=== PATIENT | male | born 1925 | race Caucasian/White ===

== ENCOUNTER 2016-09-23 17:16 | Inpatient (IN) | payer MEDICARE, MEDICAID ==
[2016-09-23] MEDS ORDERED: Sodium Chloride 0.9% 1,000 ML IV STA (18:25)
--- NOTE | 2016-09-23 18:35 | C.PDOC ---
"History Of Present Illness 89 y/o M [place] resident c PMHx BPH, glaucoma, blindness sent from [place] for increasing weakness, shortness of breath, loss of appetite, paleness that was noticed since 6 hours ago. Further ROS unobtainable due to patient's condition. Time Seen by Provider: 09/23/16 18:06 Chief Complaint (Nursing): Altered Mental Status Past Medical History Vital Signs: Last Vital Signs Temp 98.8 F 09/23/16 21:19 Pulse 86 09/23/16 21:19 Resp 18 09/23/16 21:19 BP 145/90 09/23/16 21:19 Pulse Ox 97 09/23/16 21:19 - Medical History PMH: Benign Prostatic Hyperplasia Family History: States: No Known Family Hx - Social History Hx Alcohol Use: No Hx Substance Use: No - Immunization History Hx Tetanus Toxoid Vaccination: No Hx Influenza Vaccination: No Hx Pneumococcal Vaccination: No Review Of Systems Review Of Systems: ROS cannot be obtained secondary to pt's inabilty to answer questions. Physical Exam - Physical Exam Additional Physical Exam Comments: Constitutional: No acute distress. Head: Normocephalic. Atraumatic. ENT: Dry mucous membranes. Neck: Supple. Cardiovascular: Regular rate. Radial pulses 2+ bilaterally. Chest: No tenderness. Respiratory: Clear to auscultation bilaterally. GI: Diffusely tender. Back: No CVA tenderness. Musculoskeletal: No tenderness or swelling of extremities. Skin: No rash. Neurologic: Awake, alert, no focal deficit. ED Course And Treatment - Laboratory Results Result Diagrams: 09/23/16 19:11 09/23/16 19:11 O2 Sat by Pulse Oximetry: 97 Medical Decision Making Medical Decision Making: Will assess patient for anemia, infection, UTI, PNA, electrolyte imbalance, renal function, dehydration, etc. Will also send for abdominal CT due to abdominal tenderness. [facility] Radiology [facility] Preliminary Radiology Report Call: [phone] assistance Online chat: [email or web address] Name: TELLO MONTEIRO Age: 89Years M Date: 09/23/2016 Requesting Physician: Benji Pérez : 1925 [facility] Procedure Ordered As Accession Number of Images CT ABDOMEN/PELVIS WO CT ABD PELVIS W O PO OR IV CONT [id number] J 485 Provided Clinical History: abdominal tenderness Page 1 of 3 EXAM: CT Abdomen and Pelvis Without Intravenous Contrast CLINICAL HISTORY: 89 years old, male; Pain; Abdominal pain; Generalized; Additional info: Abdominal tenderness TECHNIQUE: Axial computed tomography images of the abdomen and pelvis without intravenous contrast. This CT exam was performed using one or more of the following dose reduction techniques: automated exposure control, adjustment of the mA and/or kV according to patient size, and/ or use of iterative reconstruction technique. Coronal and sagittal reformatted images were created and reviewed. EXAM DATE/TIME: Exam ordered 09/23/2016 6:25 PM COMPARISON: No relevant prior studies available. FINDINGS: Lower thorax: There are multiple pulmonary nodules noted at both lung bases. The largest is in the right middle lobe measuring 1.6 cm in maximal diameter nodules are noted in the right upper lobe and the right lower lobe, lingula and the left lower lobe. There is a small amount of pericardial fluid/thickening. ABDOMEN: Liver: Liver is heterogeneous in density with the suggestion of multiple liver masses. Gallbladder and bile ducts: Unremarkable. No calcified stones. No ductal dilation. Pancreas: There is a heterogeneous appearing mass arising from the body the pancreas. The mass measures 4.2 x 6.6 x 4.7 cm. There is stranding of the peripancreatic fat.Small calcifications are THANIA TELLO | Preliminary Radiology Report Page 2 of 3 noted within the mass. I am uncertain if these are related to the splenic artery or represent calcifications intrinsic to the lesion. No ductal dilation. Spleen: Unremarkable Adrenals: Unremarkable. No mass. Kidneys and ureters: There is bilateral renal cortical atrophy left greater than right. There numerous cysts noted in the left kidney. The largest is in the midportion of the kidney measuring 2.3 cm with a density measurement of 9H. This is consistent with a simple cyst. Some of the lesions are too small to characterize fully. On the right, cortical hyperdense subcentimeter lesions are present. These could represent hemorrhagic cysts but they're not fully characterized due to their small size No obstructing stones. Stomach and bowel: Unremarkable. No obstruction. No mucosal thickening. Appendix: No findings to suggest acute appendicitis. PELVIS: Bladder: Unremarkable. No stones. Reproductive: Prostatic calcifications are present. The prostate measures 3.3 x 4.8 x 3.8 cm. ABDOMEN and PELVIS: Intraperitoneal space: A small amount of ascites is seen in the pelvis. No free air. Bones/joints: Degenerative changes are noted of the lumbar and thoracic spine. There is a grade 1 spondylolisthesis at L4-5 with 4 mm of retrolisthesis of L5 with respect to L4.A threaded screw traverses the right femoral neck. Its affixed to the proximal femur by a metallic plate and 4 threaded screws. Soft tissues: There is a soft tissue mass noted within the subcutaneous fat posterior to the superior left ilium. The mass measures 1.4 x 2.7 x 0.9 cm Vasculature: The fat plane around the superior mesenteric artery appears preserved. Lymph nodes: Unremarkable. No enlarged lymph nodes. IMPRESSION: 1. Multiple pulmonary nodules and hepatic masses in a patient with a dominant pancreatic mass. Findings are suspicious for metastatic pancreatic adenocarcinoma. 2. Small intra-abdominal ascites. This may be related to #1. 3. Bilateral renal cortical atrophy left greater than right. 4. Bilateral renal masses of varying density. The largest on the left are clearly simple cysts. Smaller lesions and those of the right are not like arteritis. 5. Soft tissue mass noted within subcutaneous fat posterior to the left ilium. This could represent a benign mesenchymal lesion or metastatic implant. The appearance is nonspecific. TELLO MONTEIRO | Preliminary Radiology Report FLOORING HELPER (QA) DISCREPANCY? If there is a discrepancy between the preliminary and final interpretation, please notify [facility] via [email or web address]. If you do not have access to our QA portal, call our QA team at [phone] CONFIDENTIALITY STATEMENT This report is intended only for the use of the referring physician, and only in accordance with law, If you received this in error, call [phone] Page 3 of 3 Thank you for allowing us to participate in the care of your patient. Dictated and Authenticated by: Isis Saeed MD 09/23/2016 7:26 PM Eastern Time ([place] & [place]) Patient with marked dehydration, bicarb 16, elevated BUN and creatinine, UTI, elevated lactate. CODE SEPSIS not activated as patient without fever, tachycardia, tachypnea, leukcoytosis over 12K or bandemia. Will require admission for IV hydration, antibiotics. Also with newly found metastatic pancreatic cancer. Dr. Johnson accepts to his service. Disposition Discussed With : Rafa Johnson Doctor Will See Patient In The: Hospital - Disposition Disposition: HOSPITALIZED Disposition Time: 19:54 Condition: GUARDED - Clinical Impression Clinical Impression: Acute renal insufficiency, Dehydration, UTI (urinary tract infection), Lactic acidosis, Metastasis from pancreatic cancer"
[2016-09-23] MEDS ORDERED: Sodium Chloride 0.9% 1,000 ML ONE (18:53)
[2016-09-23 19:22] LABS: INR 1.3
[2016-09-23 19:28] LABS: CHLORIDE 98 mmol/L (98-107)
[2016-09-23 19:29] LABS: BASO # 0.1 K/uL (0.0-0.2); BASO % 0.5 % (0.0-2.0); EOS # 0.1 K/uL (0.0-0.7); EOS % 0.8 % (0.0-4.0); HEMATOCRIT 36.1 % (35.0-51.0); LYMPH # 1.1 K/uL (1.0-4.3); LYMPH % 9.6 % (20.0-40.0); MEAN CELL VOLUME 89.5 fL (80.0-94.0); MEAN CORPUSCULAR HEMOGLOBIN 29.1 pg (27.0-31.0); MEAN CORPUSCULAR HGB CONC 32.6 g/dL (33.0-37.0); MONO # 0.6 K/uL (0.0-0.8); MONO % 5.5 % (0.0-10.0); PLATELET COUNT 256 K/uL (130-400); RED CELL DISTRIBUTION WIDTH 14.8 % (11.5-14.5); SODIUM 137 mmol/L (132-148)
[2016-09-23 19:31] LABS: ALB/GLOB RATIO 0.9 (1.0-2.1); ALKALINE PHOSPHATASE 359 U/L (38-126); ALT/SGPT 76 U/L (21-72); AST/SGOT 116 U/L (17-59); BILIRUBIN,TOTAL 1.6 mg/dL (0.2-1.3); BLOOD UREA NITROGEN 93 mg/dL (9-20); CARBON DIOXIDE 16 mmol/L (22-30); GFR AFRICAN-AMERICAN 19; TOTAL PROTEIN 7.1 g/dL (6.3-8.3)
[2016-09-23 19:32] LABS: CALCIUM 8.3 mg/dl (8.6-10.4); GLUCOSE,RANDOM 327 mg/dL (75-110)
[2016-09-23 19:33] LABS: VENOUS BLOOD GAS BASE EXCESS -5.6 mmol/L (0.0-2.0); VENOUS BLOOD GAS PCO2 30 mmHg (40-60); VENOUS BLOOD PH 7.39 (7.32-7.43)
[2016-09-23 19:44] LABS: POTASSIUM 5.3 mmol/L (3.6-5.2)
[2016-09-23 20:17] LABS: RBC URINE 26 /hpf (0-3); URINE BACTERIA MOD (<OCC); URINE BILIRUBIN NEGATIVE (NEGATIVE); URINE BLOOD 2+ (NEGATIVE); URINE GLUCOSE (UA) NORMAL (Normal); URINE KETONE NEGATIVE (NEGATIVE); URINE LEUKOCYTE ESTERASE 1+ Leu/uL (Negative); URINE PROTEIN 1+ mg/dL (NEGATIVE); URINE UROBILINOGEN NORMAL mg/dL (0.2-1.0); WBC URINE 13 /hpf (0-5)
[2016-09-23 20:19] LABS: URINE COLOR YELLOW (YELLOW)
[2016-09-23 20:29] LABS: NEUTROPHIL 90 % (50-75); REACTIVE LYMPHOCYTES 1 % (0-0); TOTAL CELLS COUNTED 100
[2016-09-23] MEDS ORDERED: cefTRIAXone IV 1 gm in Dextros 50 ML IVPB ONE (20:35)
[2016-09-24] MEDS: Sodium Chloride 0.9% 1,000 ML IV SCH ×3 (00:26→14:52)
[2016-09-24 06:52] LABS: MEAN CELL VOLUME 90.7 fL (80.0-94.0); MEAN CORPUSCULAR HEMOGLOBIN 29.4 pg (27.0-31.0); MEAN CORPUSCULAR HGB CONC 32.4 g/dL (33.0-37.0); MEAN PLATELET VOLUME 8.7 fL (7.2-11.7); RED CELL DISTRIBUTION WIDTH 14.7 % (11.5-14.5); WHITE BLOOD COUNT 8.6 K/uL (4.8-10.8)
[2016-09-24 06:57] LABS: RBC URINE 4 /hpf (0-3); URINE BACTERIA RARE (<OCC); URINE BILIRUBIN NEGATIVE (NEGATIVE); URINE BLOOD 2+ (NEGATIVE); URINE COLOR Yellow (YELLOW); URINE GLUCOSE (UA) NORMAL (Normal); URINE KETONE NEGATIVE (NEGATIVE); URINE LEUKOCYTE ESTERASE NEG Leu/uL (Negative); URINE PROTEIN NEGATIVE (NEGATIVE); URINE UROBILINOGEN NORMAL mg/dL (0.2-1.0); WBC URINE 7 /hpf (0-5)
[2016-09-24 07:30] LABS: POTASSIUM 4.4 mmol/L (3.6-5.2)
[2016-09-24 07:33] LABS: CALCIUM 7.6 mg/dl (8.6-10.4)
[2016-09-24 08:04] LABS: CARCINOEMBRYONIC ANTIGEN 1.6 ng/mL (0-3.0); PROSTATE SPECIFIC ANTIGEN 1.22 ng/mL (0.00-4.0)
--- NOTE | 2016-09-24 08:34 | RAD ---
HISTORY: weakness COMPARISON: No prior. FINDINGS: LUNGS: Mild venous congestion. Right hilar prominence. Few scattered nodular densities in the mid lung zones bilaterally. Upper lobe granulomatous changes. PLEURA: No significant pleural effusion identified, no pneumothorax apparent. CARDIOVASCULAR: Normal. OSSEOUS STRUCTURES: No significant abnormalities. VISUALIZED UPPER ABDOMEN: Normal. OTHER FINDINGS: None. IMPRESSION: Mild venous congestion. Right hilar prominence. Few scattered nodular densities in the mid lung zones bilaterally. Upper lobe granulomatous changes.
--- NOTE | 2016-09-24 08:40 | CT ---
PROCEDURE: CT Abdomen and Pelvis without intravenous contrast HISTORY: abdominal tenderness COMPARISON: None. TECHNIQUE: Without contrast.. Contrast Dose: 0 Radiation dose: Total exam DLP = 455.44 mGy-cm. FINDINGS: LOWER THORAX: Numerous nodules at both lung bases suspicious for metastatic disease no infectious/inflammatory etiologies must also be considered. LIVER: The liver is heterogeneous in attenuation with suspicion of multiple masses. This should be evaluated with contrast-enhanced computed tomography of the liver. The contour is mildly lobulated, again suggesting multiple masses. This does not demonstrate the fine nodular pattern of hepatic cirrhosis. No biliary ductal dilatation. GALLBLADDER AND BILE DUCTS: Unremarkable. PANCREAS: Roughly rounded mass arising from the body/ tail junction of the pancreas measuring approximately 5.2 cm in diameter. The splenic vein courses past this mass but does not appear encased. Evaluation with contrast-enhanced computed tomography is suggested. There is no pancreatic ductal dilatation appreciated. SPLEEN: Unremarkable. ADRENALS: Unremarkable. No mass. KIDNEYS AND URETERS: Bilateral renal cysts. Left kidney upper pole 2 cortical cysts, 3.1 and 2.4 cm diameter. Mid left kidney, 2.3 cm cyst. Probable small hyperdense cortical cysts right kidney. Correlate with ultrasound examination of, to better evaluate. No calculus or hydronephrosis. VASCULATURE: Unremarkable. No aortic aneurysm. BOWEL: Unremarkable. No obstruction. No gross mural thickening. APPENDIX: Unremarkable. Normal appendix. PERITONEUM: Trace ascites in pelvis. LYMPH NODES: Unremarkable. No enlarged lymph nodes. BLADDER: Unremarkable. REPRODUCTIVE: Normal prostate BONES: Status post right hip are ORIF. No fractures. OTHER FINDINGS: Bilobed soft tissue mass in the subcutaneous soft tissues posterior left iliac bone, 1.2 x 2.2 cm. Uncertain significance but the possibility of metastatic disease should be considered. This does not approach the scan and does not likely represent a sebaceous cyst. No other subcutaneous masses are appreciated. IMPRESSION: 5.2 cm pancreatic mass. Multiple masses at the lung bases suspicious for metastatic disease. Suspect multiple hepatic masses though this should be confirmed with contrast-enhanced computed tomography. Evaluation of the pancreatic mass to adjacent vasculature should be evaluated with contrast-enhanced computed tomography. 2.2 cm soft tissue mass in subcutaneous soft tissues posterior left iliac bone. Uncertain significance. Consider the possibility of metastatic disease. Additional minor findings as above. Preliminary interpretation of this examination was reported by [facility] at 7:26 p.m. on 09/23/2016. There is concurrence of this report with the preliminary interpretation.
[2016-09-24] MEDS: Pantoprazole 40 mg EC Tab PO SCH (11:06)
--- NOTE | 2016-09-24 11:16 | US ---
PROCEDURE: Ultrasound of the Kidneys HISTORY: emily COMPARISON: None available. TECHNIQUE: Sonogram of the kidneys. FINDINGS: RIGHT KIDNEY: Measures: 10.3 cm. Diffusely increased cortical echogenicity with thinning of the renal cortex consistent with diffuse medical renal disease. No calculus or hydronephrosis. Mid renal cyst, 5 mm diameter. Second mid renal cyst, 6 mm diameter. No solid mass. LEFT KIDNEY: Measures: 9.9 cm. Diffuse cortical thinning with increased echogenicity consistent with diffuse medical renal disease. No calculus or hydronephrosis. No solid mass. Two upper pole cysts, 2.0 x 3.0 x 3.0 and 1.8 x 1.9 x 2.5 cm. Mid renal cyst, 1.9 x 1.8 x 2.0 cm. OTHER FINDINGS: Ascites. Extensive hepatic metastatic disease throughout all visualized aspect of the liver. IMPRESSION: Bilateral diffusely increased renal cortical echogenicity consistent with diffuse medical renal disease. Renal cortical thinning, diffusely. Bilateral simple renal cysts. Diffuse hepatic metastatic disease. Ascites.
--- NOTE | 2016-09-24 16:11 | CP.PCM.CON ---
History of Present Illness - History of Present Illness History of Present Illness: Palliative consult requested by MD Perez Reason: Goals of care Patient is a 82 yo male admitted from [place] with weakness, SOB and loss of appetite . The CXR suggested upper lobes granulomatous changes. The CT abdomen/ pelvis was significant for pancreatic mass, multiple lung masses suspicious for malignancy and multiple liver masses. Skin is pale, Hb dropping to 8.6 from 11.0. Ca 19=9 antigen positive at 269. Patient was moved today from ICU to the floor. PMH: BPH, glaucoma, blindness Soc. Hx: single, [place] resident, sister in [place], Lynne Ireland is the closest friend here and call or contact centre team leader, who communicates with the sister in [place] PMH: Unknown Review of Systems - Review of Systems Systems not reviewed;Unavailable: Altered Mental Status Past Patient History - Past Medical History & Family History Past Medical History?: Yes - Past Social History Smoking Status: Never Smoked - CARDIAC Hx Cardiac Disorders: No - PULMONARY Hx Respiratory Disorders: No - NEUROLOGICAL Hx Neurological Disorder: No - HEENT Hx HEENT Problems: Yes Hx Glaucoma: Yes - RENAL Hx Chronic Kidney Disease: No - ENDOCRINE/METABOLIC Hx Endocrine Disorders: No - HEMATOLOGICAL/ONCOLOGICAL Hx Blood Disorders: No - INTEGUMENTARY Hx Dermatological Problems: No - MUSCULOSKELETAL/RHEUMATOLOGICAL Hx Falls: No - GASTROINTESTINAL Hx Gastrointestinal Disorders: No - GENITOURINARY/GYNECOLOGICAL Hx Genitourinary Disorders: Yes Hx Prostate Problems: Yes (BPH) - PSYCHIATRIC Hx Substance Use: No - SURGICAL HISTORY Hx Surgeries: (UNOBTAINABLE) - ANESTHESIA Hx Anesthesia: No Meds Allergies/Adverse Reactions: Allergies Allergy/AdvReac Type Severity Reaction Status Date / Time No Known Allergies Allergy Unverified 09/23/16 17:37 - Medications Medications: Current Medications Acetaminophen (Tylenol 325mg Tab) 650 mg PO Q6 PRN PRN Reason: Fever >100.4 F Heparin Sodium (Porcine) (Heparin) 5,000 units SC Q8 RICHARD Last Admin: 09/24/16 14:56 Dose: 5,000 units Sodium Chloride (Sodium Chloride 0.9%) 1,000 mls @ 100 mls/hr IV .Q10H RICHARD Last Admin: 09/24/16 14:52 Dose: 100 mls/hr Ceftriaxone Sodium 1 gm/ (Sodium Chloride) 100 mls @ 100 mls/hr IVPB HS RICHARD Insulin Human Regular (Novolin R) 0 unit SC ACHS RICHARD PRN Reason: Protocol Morphine Sulfate (Morphine) 2 mg SC Q4H PRN PRN Reason: Pain, moderate (4-7) Last Admin: 09/24/16 08:48 Dose: 2 mg Pantoprazole Sodium (Protonix Ec Tab) 40 mg PO DAILY RICHARD Last Admin: 09/24/16 11:06 Dose: Not Given Pneumococcal Polyvalent Vaccine (Pneumovax 23 Vaccine) 0.5 ml IM .ONCE ONE Stop: 09/26/16 10:01 Physical Exam - Head Exam Head Exam: ATRAUMATIC - Eye Exam Eye Exam: Normal appearance - ENT Exam ENT Exam: Mucous Membranes Dry - Neck Exam Neck exam: Positive for: Normal Inspection - Respiratory Exam Respiratory Exam: Decreased Breath Sounds - Cardiovascular Exam Cardiovascular Exam: Tachycardia - GI/Abdominal Exam GI & Abdominal Exam: Distended - Rectal Exam Rectal Exam: Deferred - Extremities Exam Extremities exam: Positive for: normal inspection - Back Exam Back exam: NORMAL INSPECTION - Neurological Exam Neurological exam: Alert, Altered - Psychiatric Exam Psychiatric exam: Flat Affect - Skin Skin Exam: Pallor Results - Vital Signs Recent Vital Signs: Last Vital Signs Temp 98.1 F 09/24/16 16:02 Pulse 93 H 09/24/16 16:02 Resp 20 09/24/16 16:02 BP 136/83 09/24/16 16:02 Pulse Ox 97 09/24/16 16:02 - Labs Result Diagrams: 09/24/16 06:45 09/24/16 06:45 Labs: Laboratory Results - last 24 hr 09/23/16 09/24/16 09/24/16 23:12 06:45 11:57 WBC 8.6 RBC 3.75 L Hgb 11.0 L Hct 34.0 L MCV 90.7 MCH 29.4 MCHC 32.4 L RDW 14.7 H Plt Count 189 MPV 8.7 Sodium 140 Potassium 4.4 Chloride 103 Carbon Dioxide 16 L Anion Gap 25 H BUN 92 H Creatinine 3.4 H Est GFR ( Amer) 21 Est GFR (Non-Af Amer) 17 POC Glucose (mg/dL) 312 H 274 H Random Glucose 221 H Calcium 7.6 L Carcinoembryonic Ag 1.6 CA 19-9 Antigen 269 H Prostate Specific Ag 1.22 Urine Color Yellow Urine Clarity Hazy Urine pH 5.0 Ur Specific [place] 1.015 Urine Protein Negative Urine Glucose (UA) Normal Urine Ketones Negative Urine Blood 2+ H Urine Nitrate Negative Urine Bilirubin Negative Urine Urobilinogen Normal Ur Leukocyte Esterase Neg Urine WBC (Auto) 7 H Urine RBC (Auto) 4 H Ur Squamous Epith Cells < 1 Urine Bacteria Rare Hyaline Casts 3-5 H Urine Yeast (Budding) Occ H Assessment & Plan - Assessment and Plan (Free Text) Assessment: Code status, Full Code. No advance directive on chart. PPS 10%. ROS unobtainable due to condition. I reviewed medical records, all diagnostic studies, examined patient in the bed and scheduled the family meeting for today in phone conversation with Lynne Ireland , who is a call or contact centre team leader. Additional 30 min spent for goals of care discussion. Patient is alert and very lethargic. There is a minimal response to verbal stimuli and some response to noxious stimuli. Skin is pale, intact with sclera that are yellow. Total valente 1.6. Patient looks very ill. PO intake poor. BP 134 /74, HR 94, RR 24, O2Sat 97% NC . Nunes drained 400 cc. BUN 93, Furnace Reliner 3.4. With Evelinafloridalma dusty at bed side I reviewed patient;s clinical picture and the CT results. She introduced her self as " like daughter" . With patient's sister on the speaker, talking from [place] I reviewed again the CT results and asked what the sister would want for her brother regarding end of life care. The sister was very clear saying ' I want him to go with God ". I asked her to clarify meaning of it, when she suggested that she would want natural for her brother with out any aggressive measures to be applied. I supported her opinion. I further asked if it was OK for Lynne Ireland to signed the POLST and sister agreed. I assisted Mrs. Batista with completing the POLST: DNR/DNI. This was shared with Doctor Alex and he concurred. I discussed this with SS and care services manager. patient was planned for discharge to [facility] today. Mrs Batista insisted that patient goes to the same [facility] he came from. This was discussed to Consuelo LORENZO. Impression * This is a chronically ill man with metastatic disease to liver, lungs and pancreas * Patient is lethargic * Patient has no decision making capacity * Patient is blind * Needs max assist with ADLs * Patient's wishes for end of life care are not known * Patient's " daughter llike" Lynne Ireland and sister who is in [place] advocate for patient * DNR/DNI chosen Suggestion * Comfort care * Assist wit care and feedings * Agree with DNR/DNI * Agree with transfer to [facility] Thank you for consulting Palliative care
[2016-09-24] MEDS: (Novolin R) Insulin Human Regular 100 units/ml vial SC SCH ×2 (18:05→22:02)
--- NOTE | 2016-09-24 23:06 | CARD ---
APPROVED REPORT EKG Measurement Heart [id number] MD [id number] <Conclusion> Sinus rhythm with fusion complexes and premature atrial complexes Low voltage QRS Borderline ECG
--- NOTE | 2016-09-24 23:17 | CP.PCM.HP ---
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 The CT abdomen/ pelvis was significant for pancreatic mass, multiple lung masses suspicious for malignancy and multiple liver masses. Skin is pale, Hb dropping to 8.6 from 11.0. Ca 19=9 antigen positive at 269. Patient was moved today from ICU to the floor. Present on Admission - Present on Admission Any Indicators Present on Admission: No Review of Systems - Review of Systems Systems not reviewed;Unavailable: Acuity of Condition - Constitutional Constitutional: Fatigue, Lethargy, Weakness - EENT Eyes: Loss of Vision Nose/Mouth/Throat: absent: As Per HPI, Epistaxis, Nasal Congestion, Nasal Discharge, Nasal Obstruction, Nasal Trauma, Nose Pain, Post Nasal Drip, Sinus Pain, Sinus Pressure, Bleeding Gums, Change in Voice, Dental Pain, Dry Mouth, Dysphagia, Halitosis, Hoarsness, Lip Swelling, Mouth Lesions, Mouth Pain, Odynophagia, Sore Throat, Throat Swelling, Tongue Swelling, Facial Pain, Neck Pain, Neck Mass, Other - Cardiovascular Cardiovascular: absent: As Per HPI, Acrocyanosis, Chest Pain, Chest Pain at Rest , Chest Pain with Activity, Claudication, Diaphoresis, Dyspnea, Dyspnea on Exertion, Edema, Irregular Heart Rhythm, Pain Radiating to Arm/Neck/Jaw, Leg Edema, Leg Ulcers, Lightheadedness, Orthopnea, Palpitations, Paroxysmal Nocturnal Dyspnea, Pedal Edema, Radiating Pain, Rapid Heart Rate, Slow Heart Rate, Syncope, Other - Respiratory Respiratory: absent: As Per HPI, Cough, Dyspnea, Hemoptysis, Dyspnea on Exertion , Wheezing, Snoring, Stridor, Pain on Inspiration, Chest Congestion, Excessive Mucous Production, Change in Mucous Color, Pain with Coughing, Other - Gastrointestinal Gastrointestinal: Abdominal Pain, Nausea Past Patient History - Past Medical History & Family History Past Medical History?: Yes - Past Social History Smoking Status: Never Smoked - CARDIAC Hx Cardiac Disorders: No - PULMONARY Hx Respiratory Disorders: No - NEUROLOGICAL Hx Neurological Disorder: No - HEENT Hx HEENT Problems: Yes Hx Glaucoma: Yes - RENAL Hx Chronic Kidney Disease: No - ENDOCRINE/METABOLIC Hx Endocrine Disorders: No - HEMATOLOGICAL/ONCOLOGICAL Hx Blood Disorders: No - INTEGUMENTARY Hx Dermatological Problems: No - MUSCULOSKELETAL/RHEUMATOLOGICAL Hx Falls: No - GASTROINTESTINAL Hx Gastrointestinal Disorders: No - GENITOURINARY/GYNECOLOGICAL Hx Genitourinary Disorders: Yes Hx Prostate Problems: Yes (BPH) - PSYCHIATRIC Hx Substance Use: No - SURGICAL HISTORY Hx Surgeries: (UNOBTAINABLE) - ANESTHESIA Hx Anesthesia: No Meds Allergies/Adverse Reactions: Allergies Allergy/AdvReac Type Severity Reaction Status Date / Time No Known Allergies Allergy Unverified 09/23/16 17:37 Physical Exam - Constitutional Appears: Chronically Ill - Head Exam Head Exam: ATRAUMATIC, NORMAL INSPECTION, NORMOCEPHALIC - Eye Exam Pupil Exam: NORMAL ACCOMODATION - ENT Exam ENT Exam: Mucous Membranes Moist - Respiratory Exam Respiratory Exam: Decreased Breath Sounds - Cardiovascular Exam Cardiovascular Exam: REGULAR RHYTHM - GI/Abdominal Exam GI & Abdominal Exam: Distended, Mass, Tenderness - Rectal Exam Rectal Exam: Deferred Results - Vital Signs Recent Vital Signs: Last Vital Signs Temp 97.7 F 09/24/16 23:09 Pulse 108 H 09/24/16 23:09 Resp 20 09/24/16 23:09 BP 111/70 09/24/16 23:09 Pulse Ox 96 09/24/16 23:09 - Labs Result Diagrams: 09/24/16 06:45 09/24/16 06:45 Labs: Laboratory Results - last 24 hr 09/23/16 09/24/16 09/24/16 23:12 06:45 11:57 WBC 8.6 RBC 3.75 L Hgb 11.0 L Hct 34.0 L MCV 90.7 MCH 29.4 MCHC 32.4 L RDW 14.7 H Plt Count 189 MPV 8.7 Sodium 140 Potassium 4.4 Chloride 103 Carbon Dioxide 16 L Anion Gap 25 H BUN 92 H Creatinine 3.4 H Est GFR ( Amer) 21 Est GFR (Non-Af Amer) 17 POC Glucose (mg/dL) 312 H 274 H Random Glucose 221 H Calcium 7.6 L Carcinoembryonic Ag 1.6 CA 19-9 Antigen 269 H Prostate Specific Ag 1.22 Urine Color Yellow Urine Clarity Hazy Urine pH 5.0 Ur Specific [place] 1.015 Urine Protein Negative Urine Glucose (UA) Normal Urine Ketones Negative Urine Blood 2+ H Urine Nitrate Negative Urine Bilirubin Negative Urine Urobilinogen Normal Ur Leukocyte Esterase Neg Urine WBC (Auto) 7 H Urine RBC (Auto) 4 H Ur Squamous Epith Cells < 1 Urine Bacteria Rare Hyaline Casts 3-5 H Urine Yeast (Budding) Occ H 09/24/16 09/24/16 16:10 21:45 WBC RBC Hgb Hct MCV MCH MCHC RDW Plt Count MPV Sodium Potassium Chloride Carbon Dioxide Anion Gap BUN Creatinine Est GFR ( Amer) Est GFR (Non-Af Amer) POC Glucose (mg/dL) 224 H 277 H Random Glucose Calcium Carcinoembryonic Ag CA 19-9 Antigen Prostate Specific Ag Urine Color Urine Clarity Urine pH Ur Specific [place] Urine Protein Urine Glucose (UA) Urine Ketones Urine Blood Urine Nitrate Urine Bilirubin Urine Urobilinogen Ur Leukocyte Esterase Urine WBC (Auto) Urine RBC (Auto) Ur Squamous Epith Cells Urine Bacteria Hyaline Casts Urine Yeast (Budding) Assessment & Plan (1) Metastasis from pancreatic cancer Status: Acute (2) Dehydration Status: Acute (3) Lactic acidosis Status: Acute (4) New onset type 2 diabetes mellitus Status: Acute - Assessment and Plan (Free Text) Plan: PT family was contacted and they opted for conservative management, PT is DNR, DNI
[2016-09-25] MEDS: Sodium Chloride 0.9% 1,000 ML IV SCH (01:44)
[2016-09-25] MEDS: (Novolin R) Insulin Human Regular 100 units/ml vial SC SCH ×4 (08:00→21:42)
[2016-09-25] MEDS: Pantoprazole 40 mg EC Tab PO SCH ×2 (10:08→10:09)
--- NOTE | 2016-09-25 10:37 | CP.PCM.CON ---
History of Present Illness - History of Present Illness History of Present Illness: Pt is a poor historian, history obtained from chart Patient is a 82 yo male admitted from [place] with weakness, SOB and loss of appetite . The CXR suggested upper lobes granulomatous changes. The CT abdomen/ pelvis was significant for pancreatic mass, multiple lung masses suspicious for malignancy and multiple liver masses. Skin is pale, Hb dropping to 8.6 from 11.0. Ca 19=9 antigen positive at 269. Patient was seen by palliative , DNR / DNI and palliative care per family lab noted, no basleine labs available but creatinine evelated to 3.7 mg/dl initially, down to 3.4 w/ iv fluids. Imaging suggestive of pancreatic mas w/ diffuse lung and liver mets, ascites. REnal imaging consistent w/ chronic disease. PMH: BPH, glaucoma, blindness Soc. Hx: single, [place] resident, no family in country-sister in [place] Review of Systems - Review of Systems Systems not reviewed;Unavailable: Dementia, Altered Mental Status All systems: reviewed and no additional remarkable complaints except Past Patient History - Past Medical History & Family History Past Medical History?: Yes - Past Social History Smoking Status: Never Smoked - CARDIAC Hx Cardiac Disorders: No - PULMONARY Hx Respiratory Disorders: No - NEUROLOGICAL Hx Neurological Disorder: No - HEENT Hx HEENT Problems: Yes Hx Glaucoma: Yes - RENAL Hx Chronic Kidney Disease: No - ENDOCRINE/METABOLIC Hx Endocrine Disorders: No - HEMATOLOGICAL/ONCOLOGICAL Hx Blood Disorders: No - INTEGUMENTARY Hx Dermatological Problems: No - MUSCULOSKELETAL/RHEUMATOLOGICAL Hx Falls: No - GASTROINTESTINAL Hx Gastrointestinal Disorders: No - GENITOURINARY/GYNECOLOGICAL Hx Genitourinary Disorders: Yes Hx Prostate Problems: Yes (BPH) - PSYCHIATRIC Hx Substance Use: No - SURGICAL HISTORY Hx Surgeries: (UNOBTAINABLE) - ANESTHESIA Hx Anesthesia: No Meds Allergies/Adverse Reactions: Allergies Allergy/AdvReac Type Severity Reaction Status Date / Time No Known Allergies Allergy Unverified 09/23/16 17:37 - Medications Medications: Current Medications Acetaminophen (Tylenol 325mg Tab) 650 mg PO Q6 PRN PRN Reason: Fever >100.4 F Heparin Sodium (Porcine) (Heparin) 5,000 units SC Q8 [facility] Last Admin: 09/25/16 06:03 Dose: 5,000 units Ceftriaxone Sodium 1 gm/ (Sodium Chloride) 100 mls @ 100 mls/hr IVPB HS [facility] Last Admin: 09/24/16 22:05 Dose: 100 mls/hr Sodium Chloride (Sodium Chloride 0.45%) 1,000 mls @ 70 mls/hr IV .[id number] [facility] Insulin Human Regular (Novolin R) 0 unit SC ACHS [facility] PRN Reason: Protocol Last Admin: 09/24/16 22:02 Dose: Not Given Morphine Sulfate (Morphine) 2 mg SC Q4H PRN PRN Reason: Pain, moderate (4-7) Last Admin: 09/24/16 08:48 Dose: 2 mg Pantoprazole Sodium (Protonix Ec Tab) 40 mg PO DAILY [facility] Last Admin: 09/25/16 10:09 Dose: Not Given Pneumococcal Polyvalent Vaccine (Pneumovax 23 Vaccine) 0.5 ml IM .ONCE ONE Stop: 09/26/16 10:01 Physical Exam - Constitutional Appears: No Acute Distress, Cachectic, Chronically Ill - Head Exam Head Exam: NORMAL INSPECTION - Eye Exam Eye Exam: Normal appearance, Scleral icterus - ENT Exam ENT Exam: Mucous Membranes Dry - Neck Exam Neck exam: Positive for: Normal Inspection - Respiratory Exam Respiratory Exam: Decreased Breath Sounds, NORMAL BREATHING PATTERN - Cardiovascular Exam Cardiovascular Exam: REGULAR RHYTHM, RRR - GI/Abdominal Exam GI & Abdominal Exam: Guarding, Normal Bowel Sounds, Soft - Extremities Exam Extremities exam: Positive for: normal inspection Results - Vital Signs Recent Vital Signs: Last Vital Signs Temp 97.9 F 09/25/16 07:25 Pulse 95 H 09/25/16 08:00 Resp 18 09/25/16 07:25 BP 104/72 09/25/16 07:25 Pulse Ox 95 09/25/16 07:25 - Labs Result Diagrams: 09/24/16 06:45 09/24/16 06:45 Labs: Laboratory Results - last 24 hr 09/24/16 09/24/16 09/24/16 11:57 16:10 21:45 POC Glucose (mg/dL) 274 H 224 H 277 H 09/25/16 06:46 POC Glucose (mg/dL) 268 H Assessment & Plan (1) Acute renal insufficiency Status: Acute (2) Dehydration Status: Acute (3) Metastasis from pancreatic cancer Status: Acute (4) UTI (urinary tract infection) Status: Acute - Assessment and Plan (Free Text) Assessment: - # emily / underlying ckd # metastatic ca ?pancreatic primary # met acidosis # E fecalis uti Plan: MAintain iv fluids, switch to 1/2NS for maintnance. recommend ampicillin for uti follow labs consider hospice
[2016-09-25] MEDS: Sodium Chloride 0.45% 1,000 ML IV SCH ×2 (11:00→21:35)
[2016-09-25 16:01] VITALS: RESP 20; O2SAT 97
[2016-09-25 23:36] VITALS: BP 94/63; PULSE 91; TEMP 99.1
[2016-09-26] MEDS ORDERED: Sodium Chloride 0.9% 1,000 ML IV ONE ×3 (01:25→02:01)
--- NOTE | 2016-09-26 01:27 | CP.PCM.PN ---
Subjective - Date & Time of Evaluation Date of Evaluation: 09/25/16 Time of Evaluation: 10:11 - Subjective Subjective: Pt seen & examined, is terminally sick on supportive end of life care, no aggressive treatment for pancreatic cancer Objective - Vital Signs/Intake and Output Vital Signs (last 24 hours): Temp Pulse Resp BP Pulse Ox 99.1 F 91 H 20 94/63 L 97 09/25/16 23:36 09/25/16 23:36 09/25/16 23:36 09/25/16 23:36 09/25/16 15:59 Intake and Output: 09/25/16 09/26/16 18:59 06:59 Intake Total 590 560 Output Total 80 100 Balance 510 460 - Medications Medications: Current Medications Acetaminophen (Tylenol 325mg Tab) 650 mg PO Q6 PRN PRN Reason: Fever >100.4 F Heparin Sodium (Porcine) (Heparin) 5,000 units SC Q8 [facility] Last Admin: 09/25/16 21:43 Dose: 5,000 units Sodium Chloride (Sodium Chloride 0.45%) 1,000 mls @ 70 mls/hr IV .[id number] [facility] Last Admin: 09/25/16 21:35 Dose: 70 mls/hr Ampicillin 2 gm/ Sodium (Chloride) 100 mls @ 100 mls/hr IVPB Q6H [facility] Last Admin: 09/26/16 00:34 Dose: 100 mls/hr Insulin Human Regular (Novolin R) 0 unit SC ACHS [facility] PRN Reason: Protocol Last Admin: 09/25/16 21:42 Dose: Not Given Morphine Sulfate (Morphine) 2 mg SC Q4H PRN PRN Reason: Pain, moderate (4-7) Last Admin: 09/25/16 13:13 Dose: 2 mg Pantoprazole Sodium (Protonix Ec Tab) 40 mg PO DAILY [facility] Last Admin: 09/25/16 10:09 Dose: Not Given Pneumococcal Polyvalent Vaccine (Pneumovax 23 Vaccine) 0.5 ml IM .ONCE ONE Stop: 09/26/16 10:01 - Labs Labs: 09/24/16 06:45 09/24/16 06:45 PT 15.1 SECONDS (9.7-12.2) H 09/23/16 19:11 INR 1.3 09/23/16 19:11 APTT 27 SECONDS (21-34) 09/23/16 19:11 - Constitutional Appears: No Acute Distress, Cachectic, Chronically Ill - Head Exam Head Exam: ATRAUMATIC, NORMAL INSPECTION, NORMOCEPHALIC - Eye Exam Eye Exam: EOMI, Normal appearance, PERRL Pupil Exam: NORMAL ACCOMODATION, PERRL - Respiratory Exam Respiratory Exam: Clear to Ausculation Bilateral, NORMAL BREATHING PATTERN - Cardiovascular Exam Cardiovascular Exam: REGULAR RHYTHM, +S1, +S2. absent: Murmur - GI/Abdominal Exam GI & Abdominal Exam: Soft, Normal Bowel Sounds. absent: Tenderness - Neurological Exam Neurological Exam: Alert, Awake, CN II-XII Intact, Normal Gait, Oriented x3 - Psychiatric Exam Psychiatric exam: Normal Affect, Normal Mood Assessment and Plan (1) Metastasis from pancreatic cancer Status: Acute (2) Dehydration Status: Acute (3) Lactic acidosis Status: Acute (4) New onset type 2 diabetes mellitus Status: Acute
--- NOTE | 2016-09-26 01:27 | CP.PCM.PN ---
Addendum entered and electronically signed by Judy Velez DO 09/26/16 02: 22: Discussed with Dr. Johnson regarding patient's deteriorating condition. Patient is not responding to fluids. As per discussion with Dr. Johnson, patient is to be kept comfortable as per POLST. No ICU evaluation at this time as per primary. Several calls placed to next of kin in the chart. Awaiting call back. Original Note: <Judy Velez - Last Filed: 09/26/16 01:54> Subjective - Date & Time of Evaluation Date of Evaluation: 09/26/16 Time of Evaluation: 01:00 - Subjective Subjective: House Doctor Note: I was called to evaluate this 89 year old male for inability to obtani Pulse Ox. Patient recently admitted from [facility] with lethargy and found to have pancreatic mass with mets. Patient is hypotensive with BP53/39, HR 91, RR 32, 84 -89% on 3L NC. Patient switched to NRB at 15% o2. Patient's chart was reviewed and palliative care nurse consult was noted stating "no aggressive measures to be applied". Patient is currently very lethargic and difficult to arouse. Patient was ordered for 2 fluid boluses to improve pressure. ABG was also ordered as per hospitalist Dr. Muse. ABG reviewed and patient with lactate of 7.7, PCO2 31, Po2 251. GEN: very lethargic. HEENT: dry MM Cardio: RRR Resp: decreased breath sounds, accessory muscle use. Neuro: eyes do not open spontaneously, localizing pain. Skin: pale, cold If patient does not respond to fluids, will contact next of kin Beka Batista to notify her of patient's deteriorating condition. Evelia Velez DO- PGY 2 Objective - Vital Signs/Intake and Output Vital Signs (last 24 hours): Temp Pulse Resp BP Pulse Ox 99.1 F 91 H 20 94/63 L 97 09/25/16 23:36 09/25/16 23:36 09/25/16 23:36 09/25/16 23:36 09/25/16 15:59 Intake and Output: 09/25/16 09/26/16 18:59 06:59 Intake Total 590 560 Output Total 80 100 Balance 510 460 - Medications Medications: Current Medications Acetaminophen (Tylenol 325mg Tab) 650 mg PO Q6 PRN PRN Reason: Fever >100.4 F Heparin Sodium (Porcine) (Heparin) 5,000 units SC Q8 [facility] Last Admin: 09/25/16 21:43 Dose: 5,000 units Sodium Chloride (Sodium Chloride 0.45%) 1,000 mls @ 70 mls/hr IV .[id number] [facility] Last Admin: 09/25/16 21:35 Dose: 70 mls/hr Ampicillin 2 gm/ Sodium (Chloride) 100 mls @ 100 mls/hr IVPB Q6H [facility] Last Admin: 09/26/16 00:34 Dose: 100 mls/hr Sodium Chloride (Sodium Chloride 0.9%) 1,000 mls @ 1,000 mls/hr IV .Q1H ONE Stop: 09/26/16 02:24 Sodium Chloride (Sodium Chloride 0.9%) 1,000 mls @ 1,000 mls/hr IV .Q1H ONE Stop: 09/26/16 02:25 Insulin Human Regular (Novolin R) 0 unit SC ACHS [facility] PRN Reason: Protocol Last Admin: 09/25/16 21:42 Dose: Not Given Morphine Sulfate (Morphine) 2 mg SC Q4H PRN PRN Reason: Pain, moderate (4-7) Last Admin: 09/25/16 13:13 Dose: 2 mg Pantoprazole Sodium (Protonix Ec Tab) 40 mg PO DAILY [facility] Last Admin: 09/25/16 10:09 Dose: Not Given Pneumococcal Polyvalent Vaccine (Pneumovax 23 Vaccine) 0.5 ml IM .ONCE ONE Stop: 09/26/16 10:01 - Labs Labs: 09/24/16 06:45 09/24/16 06:45 PT 15.1 SECONDS (9.7-12.2) H 09/23/16 19:11 INR 1.3 09/23/16 19:11 APTT 27 SECONDS (21-34) 09/23/16 19:11 <Castillo Muse P - Last Filed: 10/06/16 22:18> Objective - Vital Signs/Intake and Output Vital Signs (last 24 hours): Temp Pulse Resp BP Pulse Ox 99.1 F 91 H 20 94/63 L 97 09/25/16 23:36 09/25/16 23:36 09/25/16 23:36 09/25/16 23:36 09/25/16 15:59 - Labs Labs: 09/24/16 06:45 09/24/16 06:45 PT 15.1 SECONDS (9.7-12.2) H 09/23/16 19:11 INR 1.3 09/23/16 19:11 APTT 27 SECONDS (21-34) 09/23/16 19:11 Attending/Attestation - Attestation I have personally seen and examined this patient.: Yes I have fully participated in the care of the patient.: Yes I have reviewed all pertinent clinical information, including history, physical exam and plan: Yes
[2016-09-26 01:41] LABS: ABG ALLEN TEST NEG; DRAW SITE RB
--- NOTE | 2016-09-26 05:09 | CP.PCM.PRO ---
Pronouncement of Note - Clinical Findings Physical Exam: No Response Verbal/Painful Stimuli, Absent Peripheral Pulses{ Carotid & Femoral}, Absent Heart & Breath Sounds, No Pupillary Light Reflex, No Corneal Reflex, Pupils Fixed & Dilated, Absence of Vital Signs - Pronouncement Time Time of Pronouncement of : 05:02 - Notifications Pronouncement Notifications: Family Notified, Atending Notified Assistant County Engineer Notified: No - Autopsy Autopsy Requested: No - [place] [id number]
[2016-09-26] MEDS ORDERED: Pneumococcal 23-Valent Vaccine IM ONE (10:00)
--- NOTE | 2016-09-27 00:21 | CP.PCM.DIS ---
Provider - Provider Date of Admission: 09/23/16 20:04 Attending physician: Rafa Johnson MD Time Spent in preparation of Discharge (in minutes): 30 Diagnosis - Discharge Diagnosis (1) Metastasis from pancreatic cancer Status: Acute (2) Dehydration Status: Acute (3) Lactic acidosis Status: Acute (4) New onset type 2 diabetes mellitus Status: Acute Hospital Course - Lab Results Lab Results: Micro Results 09/24/16 15:47 Naris MRSA Culture - Final MRSA NOT DETECTED 09/23/16 Unknown Urine,Clean Catch Urine Culture - Final Enterococcus Faecalis Most Recent Lab Values WBC 8.6 K/uL (4.8-10.8) 09/24/16 06:45 RBC 3.75 Mil/uL (4.40-5.90) L 09/24/16 06:45 Hgb 11.0 g/dL (12.0-18.0) L 09/24/16 06:45 Hct 34.0 % (35.0-51.0) L 09/24/16 06:45 MCV 90.7 fL (80.0-94.0) 09/24/16 06:45 MCH 29.4 pg (27.0-31.0) 09/24/16 06:45 MCHC 32.4 g/dL (33.0-37.0) L 09/24/16 06:45 RDW 14.7 % (11.5-14.5) H 09/24/16 06:45 Plt Count 189 K/uL (130-400) 09/24/16 06:45 MPV 8.7 fL (7.2-11.7) 09/24/16 06:45 Neut % (Auto) 83.6 % (50.0-75.0) H 09/23/16 19:11 Lymph % (Auto) 9.6 % (20.0-40.0) L 09/23/16 19:11 [place] % (Auto) 5.5 % (0.0-10.0) 09/23/16 19:11 Eos % (Auto) 0.8 % (0.0-4.0) 09/23/16 19:11 Baso % (Auto) 0.5 % (0.0-2.0) 09/23/16 19:11 Neut # 9.2 K/uL (1.8-7.0) H 09/23/16 19:11 Lymph # 1.1 K/uL (1.0-4.3) 09/23/16 19:11 [place] # 0.6 K/uL (0.0-0.8) 09/23/16 19:11 Eos # 0.1 K/uL (0.0-0.7) 09/23/16 19:11 Baso # 0.1 K/uL (0.0-0.2) 09/23/16 19:11 Neutrophils % (Manual) 90 % (50-75) H 09/23/16 19:11 Band Neutrophils % 2 % (0-2) 09/23/16 19:11 Lymphocytes % (Manual) 5 % (20-40) L 09/23/16 19:11 Reactive Lymphs % 1 % (0-0) H 09/23/16 19:11 Monocytes % (Manual) 2 % (0-10) 09/23/16 19:11 Platelet Estimate Normal (NORMAL) 09/23/16 19:11 PT 15.1 SECONDS (9.7-12.2) H 09/23/16 19:11 INR 1.3 09/23/16 19:11 APTT 27 SECONDS (21-34) 09/23/16 19:11 Puncture Site Rb 09/26/16 01:32 pCO2 31 mm/Hg (35-45) L 09/26/16 01:32 pO2 251 mm/Hg (80-100) H 09/26/16 01:32 HCO3 9.6 mmol/L (21-28) L* 09/26/16 01:32 ABG pH 7.08 (7.35-7.45) L* 09/26/16 01:32 ABG Total CO2 10.2 mmol/L (22-28) L 09/26/16 01:32 ABG O2 Saturation 100.9 % (95-98) H 09/26/16 01:32 ABG Base Excess -19.7 mmol/L (-2.0-3.0) L 09/26/16 01:32 Tamir Test Neg 09/26/16 01:32 ABG Potassium 7.0 mmol/L (3.6-5.2) H* 09/26/16 01:32 VBG pH 7.39 (7.32-7.43) 09/23/16 19:30 VBG pCO2 30 mmHg (40-60) L 09/23/16 19:30 VBG HCO3 20.0 mmol/L 09/23/16 19:30 VBG Total CO2 19.1 mmol/L (22-28) L 09/23/16 19:30 VBG O2 Sat (Calc) 76.5 % (40-65) H 09/23/16 19:30 VBG Base Excess -5.6 mmol/L (0.0-2.0) L 09/23/16 19:30 VBG Potassium 5.2 mmol/L (3.6-5.2) 09/23/16 19:30 A-a O2 Difference 423.0 mm/Hg 09/26/16 01:32 Respiratory Index 1.7 09/26/16 01:32 Sodium 145.0 mmol/l (132-148) 09/26/16 01:32 Chloride 122.0 mmol/L (98-107) H 09/26/16 01:32 Glucose 109 mg/dl (75-110) 09/26/16 01:32 Lactate 7.7 mmol/L (0.7-2.1) H* 09/26/16 01:32 FiO2 100.0 % 09/26/16 01:32 Crit Value Called To Micha 09/26/16 01:32 Crit Value Called By Idris cardenas rrt 09/26/16 01:32 Crit Value Read Back Y 09/26/16 01:32 Blood Gas Notified Time 140 09/26/16 01:32 Sodium 140 mmol/L (132-148) 09/24/16 06:45 Potassium 4.4 mmol/L (3.6-5.2) 09/24/16 06:45 Chloride 103 mmol/L (98-107) 09/24/16 06:45 Carbon Dioxide 16 mmol/L (22-30) L 09/24/16 06:45 Anion Gap 25 (10-20) H 09/24/16 06:45 BUN 92 mg/dL (9-20) H 09/24/16 06:45 Creatinine 3.4 MG/DL (0.8-1.5) H 09/24/16 06:45 Est GFR ( Amer) 21 09/24/16 06:45 Est GFR (Non-Af Amer) 17 09/24/16 06:45 POC Glucose (mg/dL) 127 mg/dL (65-110) H 09/26/16 01:03 Random Glucose 221 mg/dL (75-110) H 09/24/16 06:45 Calcium 7.6 mg/dl (8.6-10.4) L 09/24/16 06:45 Total Bilirubin 1.6 mg/dL (0.2-1.3) H 09/23/16 19:11 AST 116 U/L (17-59) H 09/23/16 19:11 ALT 76 U/L (21-72) H 09/23/16 19:11 Alkaline Phosphatase 359 U/L (38-126) H 09/23/16 19:11 Total Creatine Kinase 76 U/L (55-170) 09/23/16 19:11 CK-MB (Mass) 2.42 ng/mL (0.0-3.38) 09/23/16 19:11 Troponin I < 0.0120 ng/mL (0.00-0.120) 09/23/16 19:11 Total Protein 7.1 g/dL (6.3-8.3) 09/23/16 19:11 Albumin 3.3 g/dL (3.5-5.0) L 09/23/16 19:11 Globulin 3.7 gm/dL (2.2-3.9) 09/23/16 19:11 Albumin/Globulin Ratio 0.9 (1.0-2.1) L 09/23/16 19:11 Lipase 27 U/L (23-300) 09/23/16 19:11 Carcinoembryonic Ag 1.6 ng/mL (0-3.0) 09/24/16 06:45 CA 19-9 Antigen 269 U/mL (0-37) H 09/24/16 06:45 Prostate Specific Ag 1.22 ng/mL (0.00-4.0) 09/24/16 06:45 Arterial Blood Potassium 7.0 mmol/L (3.6-5.2) H* 09/26/16 01:32 Venous Blood Potassium 5.2 mmol/L (3.6-5.2) 09/23/16 19:30 Urine Color Yellow (YELLOW) 09/24/16 06:45 Urine Clarity Hazy (Clear) 09/24/16 06:45 Urine pH 5.0 (5.0-8.0) 09/24/16 06:45 Ur Specific [place] 1.015 (1.003-1.030) 09/24/16 06:45 Urine Protein Negative mg/dL (NEGATIVE) 09/24/16 06:45 Urine Glucose (UA) Normal mg/dL (Normal) 09/24/16 06:45 Urine Ketones Negative mg/dL (NEGATIVE) 09/24/16 06:45 Urine Blood 2+ (NEGATIVE) H 09/24/16 06:45 Urine Nitrate Negative (NEGATIVE) 09/24/16 06:45 Urine Bilirubin Negative (NEGATIVE) 09/24/16 06:45 Urine Urobilinogen Normal mg/dL (0.2-1.0) 09/24/16 06:45 Ur Leukocyte Esterase Neg [place]/uL (Negative) 09/24/16 06:45 Urine WBC (Auto) 7 /hpf (0-5) H 09/24/16 06:45 Urine RBC (Auto) 4 /hpf (0-3) H 09/24/16 06:45 Ur Squamous Epith Cells < 1 /hpf (0-5) 09/24/16 06:45 Urine Bacteria Rare (<OCC) 09/24/16 06:45 Hyaline Casts 3-5 /lpf (0-2) H 09/24/16 06:45 Urine Yeast (Budding) Occ /hpf (NEGATIVE) H 09/24/16 06:45 Serum Ketones Negative (NEGATIVE) 09/23/16 19:11 Blood Type A POSITIVE 09/23/16 19:25 Antibody Screen Negative 09/23/16 19:25 - Hospital Course Hospital Course: Patient is a 82 yo male admitted from [place] with weakness, SOB and loss of appetite . The CXR suggested upper lobes granulomatous changes. The CT abdomen/ pelvis was significant for pancreatic mass, multiple lung masses suspicious for malignancy and multiple liver masses. Skin is pale, Hb dropping to 8.6 from 11.0. Ca 19=9 antigen positive at 269. Patient was seen by palliative , DNR / DNI and palliative care per family lab noted, no basleine labs available but creatinine evelated to 3.7 mg/dl initially, down to 3.4 w/ iv fluids. Imaging suggestive of pancreatic mas w/ diffuse lung and liver mets, ascites. REnal imaging consistent w/ chronic disease. Pt was on supportive care and today Discharge Exam - Head Exam Head Exam: ATRAUMATIC, NORMAL INSPECTION, NORMOCEPHALIC - Eye Exam Pupil Exam: Fixed Discharge Plan - Follow Up Plan Condition: GUARDED Disposition: WITH WITHOUT AUTOPSY
== END 2016-09-26 05:00 | DRG 436 ==
LOC: C.ER 17:16 → C.9E 20:04 → C.9I 21:19 → C.6T 09-24 12:57
PROVIDERS: ADMIT Internal Medicine; ATTEND Internal Medicine
DX: C78.7 Secondary malignant neoplasm of liver and intrahepatic bile duct (principal); N17.9 Acute kidney failure, unspecified; C78.02 Secondary malignant neoplasm of left lung; R18.0 Malignant ascites; C78.01 Secondary malignant neoplasm of right lung; C25.1 Malignant neoplasm of body of pancreas; E87.2 Acidosis; E86.0 Dehydration; E11.65 Type 2 diabetes mellitus with hyperglycemia; N28.1 Cyst of kidney, acquired; B95.2 Enterococcus as the cause of diseases classified elsewhere; N39.0 Urinary tract infection, site not specified; D64.9 Anemia, unspecified; R53.1 Weakness; N40.0 Benign prostatic hyperplasia without lower urinary tract symptoms; M43.16 Spondylolisthesis, lumbar region; H40.9 Unspecified glaucoma; Z66 Do not resuscitate; Z51.5 Encounter for palliative care; R06.02 Shortness of breath